=== PATIENT | female | born 1940 | race Hispanic/Latino ===

== ENCOUNTER → 2018-05-10 | Outpatient (CLI) | payer MEDICARE | END | disposition home or self-care (01) | LOC: OIH 10:41 | PROVIDERS: ATTEND Internal Medicine | DX: S92.511A Displaced fracture of proximal phalanx of right lesser toe(s), initial encounter for closed fracture (principal); M85.842 Other specified disorders of bone density and structure, left hand; M85.841 Other specified disorders of bone density and structure, right hand; M25.474 Effusion, right foot; X58.XXXA Exposure to other specified factors, initial encounter; Y93.89 Activity, other specified; Y92.89 Other specified places as the place of occurrence of the external cause; Y99.8 Other external cause status | CPT/HCPCS: 73130; 73630 ==

== ENCOUNTER 2018-08-02 09:22 | Emergency (ER) | payer MEDICARE ==
[2018-08-02] MEDS ORDERED: DEXTROSE 50%-WATER 50 ML DISP.SYRIN IV ONE (09:31)
[2018-08-02 09:44] LABS: BASOPHILS % (AUTO) 0.6 % (0.0-5.0); EOSINOPHILS % (AUTO) 2.5 % (0.0-8.0); HEMATOCRIT 35.7 % (36-48); LYMPHOCYTES % (AUTO) 37.1 % (21.0-51.0); MEAN CORPUSCULAR HEMOGLOBIN 29.3 pg (27.0-33.0); MEAN CORPUSCULAR HGB CONC 33.9 g/dL (32.0-36.0); MEAN CORPUSCULAR VOLUME 86.5 fL (79-99); MONOCYTES % (AUTO) 6.7 % (3.0-13.0); NEUTROPHILS % (AUTO) 53.1 % (40.0-77.0); PLATELET COUNT (AUTO) 317 K/uL (130-400); RED BLOOD CELL COUNT(AUTO) 4.13 MIL/uL (4.00-5.50); WHITE BLOOD COUNT (AUTO) 7.5 K/uL (4.8-10.8)
[2018-08-02 09:56] LABS: CREATININE 0.6 mg/dL (0.5-1.5); POTASSIUM 3.6 mmol/L (3.5-5.1)
== END 2018-08-02 13:46 | disposition home or self-care (01) ==
LOC: EDH 09:22
DX: E11.641 Type 2 diabetes mellitus with hypoglycemia with coma (principal); I10 Essential (primary) hypertension; Z79.4 Long term (current) use of insulin; Z72.0 Tobacco use
CPT/HCPCS: 36415; 80048; 82948 ×2; 85025; 93005; 96374; 99291; J7070

== ENCOUNTER → 2018-12-05 | Outpatient (CLI) | payer MEDICARE | END | disposition home or self-care (01) | LOC: OIH 09:30 | PROVIDERS: ATTEND Family Medicine | DX: R63.4 Abnormal weight loss (principal); I12.9 Hypertensive chronic kidney disease with stage 1 through stage 4 chronic kidney disease, or unspecified chronic kidney disease; N18.9 Chronic kidney disease, unspecified | CPT/HCPCS: 71046 ==

== ENCOUNTER → 2019-05-11 | Outpatient (CLI) | payer MEDICARE | END | disposition home or self-care (01) | LOC: RAH 11:05 | PROVIDERS: ATTEND Internal Medicine | DX: M51.17 Intervertebral disc disorders with radiculopathy, lumbosacral region (principal); M48.07 Spinal stenosis, lumbosacral region | CPT/HCPCS: 72148 ==

== ENCOUNTER 2020-05-07 14:06 | Inpatient (IN) | payer MEDICARE ==
[~2020-05-07] VITALS: Ht 157.5 cm; Wt 53.8 kg
[2020-05-07 14:55] LABS: BASOPHILS % (AUTO) 0.3 % (0.0-5.0); HEMATOCRIT 31.1 % (36-48); LYMPHOCYTES % (AUTO) 16.5 % (21.0-51.0); MEAN CORPUSCULAR HEMOGLOBIN 28.4 pg (27.0-33.0); MEAN CORPUSCULAR HGB CONC 33.8 g/dL (32.0-36.0); MEAN CORPUSCULAR VOLUME 84.1 fL (79-99); MONOCYTES % (AUTO) 8.3 % (3.0-13.0); NEUTROPHILS % (AUTO) 74.1 % (40.0-77.0); PLATELET COUNT (AUTO) 537 K/uL (130-400); RED CELL DISTRIBUTION WIDTH 14.2 % (11.0-15.5)
[2020-05-07 15:05] LABS: CREATININE 0.6 mg/dL (0.5-1.5); POTASSIUM 3.6 mmol/L (3.5-5.1)
[2020-05-07 15:10] LABS: ALBUMIN 2.5 g/dL (3.5-5.0); BILIRUBIN,TOTAL 0.4 mg/dL (0.2-1.0); TOTAL PROTEIN, SERUM 7.6 g/dL (6.0-8.3)
[2020-05-07] MEDS ORDERED: ONDANSETRON 4MG INJ ONE (15:24)
[2020-05-07] MEDS ORDERED: PROCHLORPERAZINE 10MG/2ML INJ ONE (15:29)
[2020-05-07] MEDS ORDERED: FAMOTIDINE 20MG VIAL IV ONE (15:30)
[2020-05-07] MEDS ORDERED: 0.9%NACL 1000ML 1,000 ML IV ONE (15:32)
[2020-05-07 15:34] LABS: APPEARANCE,URINE CLOUDY (CLEAR); BILIRUBIN,URINE NEGATIVE (NEGATIVE); COLOR,URINE YELLOW (YELLOW); GLUCOSE, URINE (UA) >=1000 mg/dL (NEGATIVE); KETONES,URINE 15 mg/dL (NEGATIVE); LEUKOCYTE ESTERASE ,URINE MODERATE (NEGATIVE); NITRATE,URINE NEGATIVE (NEGATIVE); OCCULT BLOOD,URINE TRACE-INTACT (NEGATIVE); PROTEIN,URINE 30 mg/dL (NEGATIVE); UROBILINOGEN,URINE 0.2 mg/dL (0.2-1.0)
[2020-05-07 16:00] LABS: BACTERIA,URINE Moderate /HPF (None Seen); RBC,URINE 0-1 /HPF (0-1)
[2020-05-07 16:01] LABS: SQUAMOUS EPITHELIAL CELL,UR Rare /HPF (0-2); YEAST,URINE BUDDING Few /HPF (None Seen)
[2020-05-07] MEDS ORDERED: METRONIDAZOLE 500MG/100ML BAG 100 ML ONE (17:28)
[2020-05-07] MEDS ORDERED: LEVOFLOXACIN 500 MG/D5W 100 ML 100 ML ONE (17:28)
[2020-05-07] MEDS ORDERED: ONDANSETRON 4MG INJ IV PRN (20:00)
[2020-05-07] MEDS ORDERED: ACETAMINOPHEN 325 MG TAB PO PRN ×2 (20:00)
[2020-05-07] MEDS: METRONIDAZOLE 500MG/100ML BAG 100 ML IV SCH (20:00)
[2020-05-07] MEDS ORDERED: 0.9%NACL 1000ML 1,000 ML IV SCH (20:00)
[2020-05-07] MEDS: LEVOFLOXACIN 500 MG/D5W 100 ML 100 ML IV SCH (20:00)
[2020-05-07] MEDS: FAMOTIDINE 20MG VIAL IV SCH (21:00)
[2020-05-07 21:27] LABS: HEMOGLOBIN A1C 11.2 % (4.0-6.0)
[2020-05-07 21:47] LABS: CRP QUANTITATIVE 69.9 mg/L (0.00-9.0)
[2020-05-07 23:37] LABS: INR 1.16 (0.85-1.15); PROTHROMBIN TIME 12.2 SEC (9.6-11.6)
[2020-05-07 23:39] LABS: PARTIAL THROMBOPLASTIN TIME 30.8 SEC (26.3-35.5)
[2020-05-08] MEDS: METRONIDAZOLE 500MG/100ML BAG 100 ML IV SCH ×3 (04:00→20:00)
[2020-05-08] MEDS ORDERED: METRONIDAZOLE 500MG/100ML BAG 100 ML ONE ×3 (04:39→20:19)
[2020-05-08] MEDS: INSULIN HUMULIN R 100 UNIT/ML 3ML SQ SCH ×3 (07:30→17:00)
[2020-05-08 08:33] LABS: BASOPHILS % (AUTO) 0.2 % (0.0-5.0); HEMATOCRIT 30.3 % (36-48); LYMPHOCYTES % (AUTO) 14.8 % (21.0-51.0); MEAN CORPUSCULAR HEMOGLOBIN 28.2 pg (27.0-33.0); MEAN CORPUSCULAR HGB CONC 32.3 g/dL (32.0-36.0); MEAN CORPUSCULAR VOLUME 87.3 fL (79-99); MONOCYTES % (AUTO) 11.2 % (3.0-13.0); PLATELET COUNT (AUTO) 572 K/uL (130-400); RED BLOOD CELL COUNT(AUTO) 3.47 MIL/uL (4.00-5.50); RED CELL DISTRIBUTION WIDTH 14.3 % (11.0-15.5); WHITE BLOOD COUNT (AUTO) 10.7 K/uL (4.8-10.8)
[2020-05-08 08:55] LABS: ALBUMIN 2.7 g/dL (3.5-5.0); BILIRUBIN,TOTAL 0.5 mg/dL (0.2-1.0); CREATININE 0.6 mg/dL (0.5-1.5); MAGNESIUM 1.4 mg/dL (1.80-2.40); PHOSPHORUS 2.5 mg/dL (2.5-4.9); TOTAL PROTEIN, SERUM 7.6 g/dL (6.0-8.3)
[2020-05-08] MEDS: PREGABALIN 75 MG CAPSULE PO SCH ×2 (09:00→21:00)
[2020-05-08] MEDS: SULFASALAZINE 500 MG TAB.DR PO SCH ×2 (09:00→21:00)
[2020-05-08] MEDS: FAMOTIDINE 20MG VIAL IV SCH ×2 (09:00→21:00)
[2020-05-08] MEDS: ENOXAPARIN SODIUM 30 MG/0.3 ML SQ SCH (09:00)
[2020-05-08] MEDS ORDERED: ACETAMINOPHEN 325 MG TAB ONE (09:28)
[2020-05-08] MEDS ORDERED: FAMOTIDINE 20MG VIAL IV ONE ×2 (09:29→20:20)
[2020-05-08] MEDS ORDERED: INSULIN HUMULIN R 100 UNIT/ML 3ML ONE ×2 (11:30→17:45)
[2020-05-08] MEDS ORDERED: 0.9%NACL 1000ML 1,000 ML IV ONE (16:00)
[2020-05-08] MEDS ORDERED: IOHEXOL-350 75 ML VIAL IV ONE (16:06)
[2020-05-08] MEDS ORDERED: PREGABALIN 75 MG CAPSULE ONE (16:54)
[2020-05-08] MEDS: LEVOFLOXACIN 500 MG/D5W 100 ML 100 ML IV SCH (20:00)
[2020-05-08] MEDS ORDERED: ATORVASTATIN 20 MG TABLET ONE (20:18)
[2020-05-08] MEDS ORDERED: LEVOFLOXACIN 500 MG/D5W 100 ML 100 ML ONE (20:29)
[2020-05-08] MEDS: INSULIN GLARGINE 100 UNITS/ML 10 ML VIAL SQ SCH (21:00)
[2020-05-08] MEDS: ATORVASTATIN 20 MG TABLET PO SCH (21:00)
[2020-05-08] MEDS: ROPINIROLE HCL 0.25 MG TABLET PO SCH (21:00)
[2020-05-09] MEDS: METRONIDAZOLE 500MG/100ML BAG 100 ML IV SCH ×3 (04:00→19:56)
[2020-05-09] MEDS ORDERED: METRONIDAZOLE 500MG/100ML BAG 100 ML ONE (05:16)
[2020-05-09] MEDS ORDERED: PREGABALIN 75 MG CAPSULE ONE (05:16)
[2020-05-09 05:45] VITALS: BP 134/60
[2020-05-09 06:09] LABS: BASOPHILS % (AUTO) 0.1 % (0.0-5.0); HEMATOCRIT 27.8 % (36-48); LYMPHOCYTES % (AUTO) 16.1 % (21.0-51.0); MEAN CORPUSCULAR HEMOGLOBIN 27.8 pg (27.0-33.0); MEAN CORPUSCULAR HGB CONC 33.5 g/dL (32.0-36.0); MONOCYTES % (AUTO) 10.7 % (3.0-13.0); NEUTROPHILS % (AUTO) 72.3 % (40.0-77.0); PLATELET COUNT (AUTO) 591 K/uL (130-400); RED BLOOD CELL COUNT(AUTO) 3.35 MIL/uL (4.00-5.50); RED CELL DISTRIBUTION WIDTH 13.7 % (11.0-15.5); WHITE BLOOD COUNT (AUTO) 10.3 K/uL (4.8-10.8)
[2020-05-09 06:22] LABS: CREATININE 0.6 mg/dL (0.5-1.5)
[2020-05-09 06:23] LABS: POTASSIUM 2.8 mmol/L (3.5-5.1)
[2020-05-09] MEDS ORDERED: METF-446 PO (06:23)
[2020-05-09] MEDS ORDERED: TRAM50TA4 PO (06:23)
[2020-05-09] MEDS ORDERED: CILO50TA PO (06:23)
[2020-05-09] MEDS ORDERED: ROPI0.257 PO (06:23)
[2020-05-09] MEDS ORDERED: SULFAD500 PO (06:23)
[2020-05-09] MEDS ORDERED: PREG100C55 PO (06:23)
[2020-05-09] MEDS ORDERED: MULT-1367 PO (06:23)
[2020-05-09] MEDS ORDERED: DAPA5TAB PO (06:23)
[2020-05-09] MEDS ORDERED: LEFL10TA19 PO (06:23)
[2020-05-09] MEDS ORDERED: ATOR20TA65 PO (06:23)
[2020-05-09] MEDS ORDERED: POTASSIUM CHLORIDE 20MEQ/100ML 100 ML IV PRN (06:30)
[2020-05-09] MEDS ORDERED: LIDOCAINE HCL-MPF 1% 2ML VIAL IV PRN ×2 (06:30)
[2020-05-09] MEDS ORDERED: POTASSIUM CHLORIDE 10% ELIXIR 20 MEQ/15 ML UDCUP PO PRN (06:30)
[2020-05-09] MEDS: INSULIN HUMULIN R 100 UNIT/ML 3ML SQ SCH ×3 (06:48→16:27)
[2020-05-09 08:00] VITALS: BP 138/70
[2020-05-09] MEDS: FAMOTIDINE 20MG VIAL IV SCH (09:04)
[2020-05-09] MEDS: PREGABALIN 75 MG CAPSULE PO SCH ×2 (09:05→20:05)
[2020-05-09] MEDS: ENOXAPARIN SODIUM 30 MG/0.3 ML SQ SCH (09:05)
[2020-05-09] MEDS: KCL 20 MEQ ERTAB PO PRN ×2 (09:05→13:56)
[2020-05-09] MEDS: POTASSIUM CHLORIDE 20MEQ/100ML 100 ML IV PRN (09:09)
[2020-05-09] MEDS: SULFASALAZINE 500 MG TAB.DR PO SCH ×2 (09:09→20:20)
[2020-05-09] MEDS: DAPAGLIFLOZIN PROPANEDIOL 5 MG PO SCH (10:16)
[2020-05-09] MEDS: CILOSTAZOL 100 MG TAB PO SCH (11:44)
[2020-05-09 12:00] VITALS: BP 147/74
[2020-05-09 16:00] VITALS: BP 137/51
[2020-05-09] MEDS: ZINC OXIDE OINT 60GM TUBE TP SCH ×2 (18:23→20:05)
[2020-05-09 20:02] VITALS: BP 162/77
[2020-05-09] MEDS: ROPINIROLE HCL 0.25 MG TABLET PO SCH (20:05)
[2020-05-09] MEDS: ATORVASTATIN 20 MG TABLET PO SCH (20:05)
[2020-05-09] MEDS: INSULIN GLARGINE 100 UNITS/ML 10 ML VIAL SQ SCH (20:09)
[2020-05-09] MEDS: LEVOFLOXACIN 500 MG/D5W 100 ML 100 ML IV SCH (20:14)
[2020-05-09] MEDS ORDERED: SULFADIAZINE 500 MG PO SCH (21:00)
[2020-05-09] MEDS ORDERED: PREGABALIN 100 MG CAPSULE PO SCH (21:00)
[2020-05-09 23:57] VITALS: BP 142/69
[2020-05-10 03:37] VITALS: BP 114/53
[2020-05-10 04:28] LABS: BASOPHILS % (AUTO) 0.3 % (0.0-5.0); EOSINOPHILS % (AUTO) 0.5 % (0.0-8.0); HEMATOCRIT 27.2 % (36-48); MEAN CORPUSCULAR HEMOGLOBIN 28.6 pg (27.0-33.0); MEAN CORPUSCULAR HGB CONC 33.8 g/dL (32.0-36.0); MEAN CORPUSCULAR VOLUME 84.5 fL (79-99); MONOCYTES % (AUTO) 10.2 % (3.0-13.0); NEUTROPHILS % (AUTO) 60.3 % (40.0-77.0); PLATELET COUNT (AUTO) 566 K/uL (130-400); RED BLOOD CELL COUNT(AUTO) 3.22 MIL/uL (4.00-5.50); RED CELL DISTRIBUTION WIDTH 13.8 % (11.0-15.5); WHITE BLOOD COUNT (AUTO) 9.5 K/uL (4.8-10.8)
[2020-05-10] MEDS: METRONIDAZOLE 500MG/100ML BAG 100 ML IV SCH ×3 (04:40→20:52)
[2020-05-10 04:45] LABS: CREATININE 0.6 mg/dL (0.5-1.5); POTASSIUM 3.1 mmol/L (3.5-5.1)
[2020-05-10] MEDS: KCL 20 MEQ ERTAB PO PRN (05:08)
[2020-05-10] MEDS: INSULIN HUMULIN R 100 UNIT/ML 3ML SQ SCH ×3 (07:30→17:10)
[2020-05-10] MEDS: DAPAGLIFLOZIN PROPANEDIOL 5 MG PO SCH (09:00)
[2020-05-10] MEDS ORDERED: ROPINIROLE HCL 0.25 MG TABLET PO SCH (09:00)
[2020-05-10] MEDS: LEFLUNOMIDE 10 MG PO SCH (09:00)
[2020-05-10] MEDS: ZINC OXIDE OINT 60GM TUBE TP SCH ×3 (09:56→20:52)
[2020-05-10] MEDS: SULFASALAZINE 500 MG TAB.DR PO SCH ×2 (09:59→20:42)
[2020-05-10] MEDS: PREGABALIN 75 MG CAPSULE PO SCH ×2 (10:00→20:42)
[2020-05-10] MEDS: PANTOPRAZOLE 40 MG TAB DR PO SCH (10:00)
[2020-05-10] MEDS: CILOSTAZOL 100 MG TAB PO SCH (10:00)
[2020-05-10] MEDS: ENOXAPARIN SODIUM 30 MG/0.3 ML SQ SCH (10:00)
[2020-05-10] MEDS ORDERED: ASPI-1005 PO (11:47)
[2020-05-10] MEDS ORDERED: PREG75 PO (11:47)
[2020-05-10 13:15] VITALS: BP 140/72
[2020-05-10 17:51] VITALS: BP 135/70
[2020-05-10 19:00] VITALS: BP 132/52
[2020-05-10] MEDS: ROPINIROLE HCL 0.25 MG TABLET PO SCH (20:41)
[2020-05-10] MEDS: ATORVASTATIN 20 MG TABLET PO SCH (20:41)
[2020-05-10] MEDS: LEVOFLOXACIN 500 MG/D5W 100 ML 100 ML IV SCH (22:04)
[2020-05-10] MEDS: INSULIN GLARGINE 100 UNITS/ML 10 ML VIAL SQ SCH (22:22)
[2020-05-11] VITALS: BP 136/56
[2020-05-11 04:00] VITALS: BP 120/53
[2020-05-11] MEDS: METRONIDAZOLE 500MG/100ML BAG 100 ML IV SCH ×3 (04:30→21:23)
[2020-05-11] MEDS: INSULIN HUMULIN R 100 UNIT/ML 3ML SQ SCH ×3 (06:34→17:33)
[2020-05-11 06:54] LABS: BASOPHILS % (AUTO) 0.4 % (0.0-5.0); EOSINOPHILS % (AUTO) 0.5 % (0.0-8.0); HEMATOCRIT 24.2 % (36-48); LYMPHOCYTES % (AUTO) 22.1 % (21.0-51.0); MEAN CORPUSCULAR HEMOGLOBIN 27.1 pg (27.0-33.0); MEAN CORPUSCULAR HGB CONC 32.6 g/dL (32.0-36.0); MEAN CORPUSCULAR VOLUME 83.2 fL (79-99); NEUTROPHILS % (AUTO) 61.1 % (40.0-77.0); PLATELET COUNT (AUTO) 552 K/uL (130-400); RED BLOOD CELL COUNT(AUTO) 2.91 MIL/uL (4.00-5.50); RED CELL DISTRIBUTION WIDTH 13.9 % (11.0-15.5); WHITE BLOOD COUNT (AUTO) 8.2 K/uL (4.8-10.8)
[2020-05-11 07:16] LABS: CREATININE 0.6 mg/dL (0.5-1.5)
[2020-05-11 07:21] LABS: POTASSIUM 2.8 mmol/L (3.5-5.1)
[2020-05-11 08:00] VITALS: BP 119/58
[2020-05-11] MEDS: DAPAGLIFLOZIN PROPANEDIOL 5 MG PO SCH (09:00)
[2020-05-11] MEDS: LEFLUNOMIDE 10 MG PO SCH (09:00)
[2020-05-11] MEDS: PANTOPRAZOLE 40 MG TAB DR PO SCH (10:57)
[2020-05-11] MEDS: SULFASALAZINE 500 MG TAB.DR PO SCH ×2 (10:57→21:14)
[2020-05-11] MEDS: PREGABALIN 75 MG CAPSULE PO SCH ×2 (10:57→21:14)
[2020-05-11] MEDS: CILOSTAZOL 100 MG TAB PO SCH (10:58)
[2020-05-11] MEDS: ZINC OXIDE OINT 60GM TUBE TP SCH ×3 (10:59→21:23)
[2020-05-11] MEDS: ENOXAPARIN SODIUM 30 MG/0.3 ML SQ SCH (10:59)
[2020-05-11 12:10] VITALS: BP 125/68
[2020-05-11] MEDS: KCL 20 MEQ ERTAB PO PRN ×4 (12:56→21:15)
[2020-05-11 16:00] VITALS: BP 135/73
[2020-05-11 19:00] VITALS: BP 132/62
[2020-05-11] MEDS: INSULIN GLARGINE 100 UNITS/ML 10 ML VIAL SQ SCH (21:13)
[2020-05-11] MEDS: ROPINIROLE HCL 0.25 MG TABLET PO SCH (21:14)
[2020-05-11] MEDS: LEVOFLOXACIN 500 MG/D5W 100 ML 100 ML IV SCH (21:22)
[2020-05-11] MEDS: ATORVASTATIN 20 MG TABLET PO SCH (21:22)
[2020-05-11] MEDS: POTASSIUM CHLORIDE 20MEQ/100ML 100 ML IV PRN (22:25)
[2020-05-12] VITALS: BP 129/59
[2020-05-12 04:00] VITALS: BP 140/69
[2020-05-12] MEDS: METRONIDAZOLE 500MG/100ML BAG 100 ML IV SCH ×2 (04:25→12:39)
[2020-05-12 05:46] LABS: BASOPHILS % (AUTO) 0.5 % (0.0-5.0); EOSINOPHILS % (AUTO) 0.5 % (0.0-8.0); HEMATOCRIT 26.8 % (36-48); MEAN CORPUSCULAR HEMOGLOBIN 27.8 pg (27.0-33.0); MEAN CORPUSCULAR HGB CONC 33.2 g/dL (32.0-36.0); MEAN CORPUSCULAR VOLUME 83.8 fL (79-99); NEUTROPHILS % (AUTO) 57.8 % (40.0-77.0); PLATELET COUNT (AUTO) 624 K/uL (130-400); WHITE BLOOD COUNT (AUTO) 8.5 K/uL (4.8-10.8)
[2020-05-12 06:01] LABS: CREATININE 0.7 mg/dL (0.5-1.5); POTASSIUM 3.6 mmol/L (3.5-5.1)
[2020-05-12] MEDS: KCL 20 MEQ ERTAB PO PRN ×2 (06:15→06:49)
[2020-05-12] MEDS: INSULIN HUMULIN R 100 UNIT/ML 3ML SQ SCH ×3 (06:50→17:00)
[2020-05-12 08:00] VITALS: BP 128/65
[2020-05-12] MEDS: LEFLUNOMIDE 10 MG PO SCH (09:00)
[2020-05-12] MEDS: PANTOPRAZOLE 40 MG TAB DR PO SCH (10:43)
[2020-05-12] MEDS: SULFASALAZINE 500 MG TAB.DR PO SCH (10:43)
[2020-05-12] MEDS: PREGABALIN 75 MG CAPSULE PO SCH (10:43)
[2020-05-12] MEDS: CILOSTAZOL 100 MG TAB PO SCH (10:44)
[2020-05-12] MEDS: ZINC OXIDE OINT 60GM TUBE TP SCH ×2 (10:46→14:00)
[2020-05-12] MEDS: ENOXAPARIN SODIUM 30 MG/0.3 ML SQ SCH (10:46)
[2020-05-12] MEDS: DAPAGLIFLOZIN PROPANEDIOL 5 MG PO SCH (10:53)
[2020-05-12 12:00] VITALS: BP 133/62
[2020-05-12] MEDS ORDERED: NYSTATIN 15 GM POWDER TP SCH (21:00)
== END 2020-05-12 17:30 | DRG 177 ==
LOC: EDH 14:06 → EDHIP 19:57 → 4AH 05-09 04:10
PROVIDERS: ADMIT Internal Medicine; ATTEND Internal Medicine
PROC: XW13325 Transfusion of Convalescent Plasma (Nonautologous) into Peripheral Vein, Percutaneous Approach, New Technology Group 5 (ICD-10-PCS; principal; 2020-05-08)
DX: U07.1 COVID-19 (principal); J12.82 Pneumonia due to coronavirus disease 2019; G93.49 Other encephalopathy; N39.0 Urinary tract infection, site not specified; E11.65 Type 2 diabetes mellitus with hyperglycemia; R15.9 Full incontinence of feces; I10 Essential (primary) hypertension; E78.5 Hyperlipidemia, unspecified; G25.81 Restless legs syndrome; E11.40 Type 2 diabetes mellitus with diabetic neuropathy, unspecified; M06.9 Rheumatoid arthritis, unspecified; D64.9 Anemia, unspecified; F03.90 Unspecified dementia, unspecified severity, without behavioral disturbance, psychotic disturbance, mood disturbance, and anxiety; M47.816 Spondylosis without myelopathy or radiculopathy, lumbar region; R53.81 Other malaise; B96.1 Klebsiella pneumoniae [K. pneumoniae] as the cause of diseases classified elsewhere; R79.89 Other specified abnormal findings of blood chemistry; B96.89 Other specified bacterial agents as the cause of diseases classified elsewhere; M48.061 Spinal stenosis, lumbar region without neurogenic claudication; K52.9 Noninfective gastroenteritis and colitis, unspecified; Z99.3 Dependence on wheelchair; Z83.3 Family history of diabetes mellitus; Z74.01 Bed confinement status
CPT/HCPCS: 36415; 70450; 71045; 71275; 74176; 80048; 80053; 81001; 82270; 82948; 83036; 83605; 83735; 84100; 84132; 84145; 84484; 85025; 85378; 85610; 85730; 86140; 86850; 86900; 86901; 86927; 87040; 87046; 87077; 87088; 87186; 87324; 87426; 87507; 93005; 93970; G0378; J0780; J1650; J1815; J1956; J2405; J3480; J3490; J7030; Q9967